=== PATIENT | male | born 1990 | race Caucasian/White ===

== ENCOUNTER 2021-07-23 15:35 | Emergency (ER) | payer SELFPAY ==
[~2021-07-23] VITALS: Ht 167.6 cm; Wt 89.8 kg
[2021-07-23 16:24] LABS: BILIRUBIN,URINE NEGATIVE (NEGATIVE); COLOR,URINE YELLOW (YELLOW); LEUKOCYTE ESTERASE ,URINE NEGATIVE (NEGATIVE); NITRITE, URINE NEGATIVE (NEGATIVE); PROTEIN,URINE NEGATIVE (NEGATIVE); UGLUCOSE NEGATIVE (NEGATIVE); UROBILINOGEN,URINE 0.2 EU/dL (0.2)
--- NOTE | 2021-07-23 16:26 | NUR ---
BLOOD COLLECTED AND SENT TO LAB
[2021-07-23] MEDS ORDERED: ONDANSETRON HCL/PF 4 MG/2 ML VIAL ONE (16:27)
[2021-07-23] MEDS ORDERED: MORPHINE SULFATE INJ 4 MG/ML DISP.SYRIN ONE (16:28)
[2021-07-23] MEDS ORDERED: IV NS 0.9% 1,000 ML BAG IV ONE (16:30)
[2021-07-23] MEDS ORDERED: ONDANSETRON HCL/PF 4 MG/2 ML VIAL IVP ONE (16:30)
[2021-07-23] MEDS ORDERED: MORPHINE SULFATE INJ 2 MG/ML DISP.SYRIN IV ONE (16:30)
--- NOTE | 2021-07-23 16:35 | NUR ---
IV LINE ESTABLISHED. LAC 20G
--- NOTE | 2021-07-23 16:45 | NUR ---
PT TAKEN FOR CT SCAN
[2021-07-23 16:59] LABS: BACTERIA,URINE 1+ /HPF (None Seen); SQUAMOUS EPITHELIAL CELL,UR Few /HPF (None Seen); WBC,URINE 0-2 /HPF (0-3)
[2021-07-23 17:39] LABS: ALBUMIN 3.9 g/dL (3.4-5.0); BILIRUBIN,DIRECT 0.1 mg/dL (0.0-0.2); BILIRUBIN,TOTAL 1.2 mg/dL (0.2-1.0); CREATININE 1.1 mg/dL (0.6-1.3); TOTAL PROTEIN, SERUM 8.4 g/dL (6.4-8.2)
[2021-07-23 18:10] LABS: BASOPHILS # (AUTO) 0.1 K/uL (0.0-0.2); BASOPHILS % (AUTO) 0.8 % (0.0-2.0); EOSINOPHILS % (AUTO) 2.9 % (0.0-6.0); HEMATOCRIT 41 % (39-51); HEMOGLOBIN 13.7 g/dL (13.5-17.5); LYMPHOCYTES # (AUTO) 2.9 K/uL (0.8-4.8); LYMPHOCYTES % (AUTO) 33.7 % (20.0-44.0); MEAN CORPUSCULAR HGB CONC 34 g/dl (31.0-36.0); MEAN CORPUSCULAR VOLUME 89 fL (80-96); MONOCYTES # (AUTO) 0.7 K/uL (0.1-1.30); MONOCYTES % (AUTO) 8.2 % (2.0-12.0); NEUTROPHILS # (AUTO) 4.7 K/uL (1.8-8.9); NEUTROPHILS % (AUTO) 54.4 % (43.0-81.0); PLATELET COUNT (AUTO) 292 K/uL (150-450); RED BLOOD CELL COUNT(AUTO) 4.54 MIL/uL (4.5-6.0); WHITE BLOOD COUNT (AUTO) 8.7 K/uL (4.3-11.0)
[2021-07-23] MEDS ORDERED: IBUP-1955 PO (18:18)
--- NOTE | 2021-07-23 18:25 | NUR ---
IV removed. Catheter intact and site benign. Pressure and 4x4 applied to site. No bleeding noted.
--- NOTE | 2021-07-23 18:30 | NUR ---
Patient discharged to home in stable condition. Written and verbal after care instructions given. Patient verbalizes understanding of instruction.
[2021-07-23 18:37] VITALS: BP 112/60
== END 2021-07-23 18:38 | disposition home or self-care (01) ==
LOC: ER 15:40
DX: R10.31 Right lower quadrant pain (principal); Z60.2 Problems related to living alone
CPT/HCPCS: 36415; 74176; 80048; 80076; 81001; 83690; 85025; 85730; 96361; 96374; 96375; 99284; J2270; J2405; J7030

== ENCOUNTER 2024-07-31 02:45 | Emergency (ER) | payer OTHER ==
[~2024-07-31] VITALS: Ht 167.6 cm; Wt 88.5 kg
[~2024-07-31 02:45] MED LIST: IBUP-1955 PO
[2024-07-31] MEDS ORDERED: IBUP-1490 PO (04:26)
[2024-07-31 04:52] VITALS: BP 120/95; TEMP 98.4; O2SAT 98
== END 2024-07-31 04:52 | disposition home or self-care (01) ==
LOC: ER 02:53
DX: J02.9 Acute pharyngitis, unspecified (principal); Z20.822 Contact with and (suspected) exposure to COVID-19
CPT/HCPCS: 71045-TC; 86403-TC; 87070-TC